=== PATIENT | female | born 1980 | race Two or more races ===

== ENCOUNTER → 2024-07-13 | Outpatient (CLI) | payer MEDICAID, SELFPAY ==
--- NOTE | 2024-07-13 11:30 | XR_ITS ---
Examination: Abdomen sonogram, complete Date and time of exam: July 13, 2024 12:20 PM INDICATIONS: Hematuria this month. Technique: Multiple real-time grayscale transabdominal sonographic images of the abdomen have been obtained. Findings: Multiple gallstones Normal gallbladder wall Normal common bile duct 0.2 cm Pancreatic head 2.3 cm Aorta not enlarged Liver 15.6 cm no focal liver lesions Normal hepatopedal portal venous oh Patent IVC Right kidney 11.9 cm cortex 1.5 cm Left kidney 11.5 cm cortex 1.7 cm Spleen 9.0 cm IMPRESSION: Cholelithiasis, negative for cholecystitis No renal calculi, no hydronephrosis, no solid renal mass lesion
== END | disposition home or self-care (01) ==
PROVIDERS: PCP Internal Medicine; Referring Provider Internal Medicine; Visit Provider Internal Medicine
DX: K80.20 Calculus of gallbladder without cholecystitis without obstruction (principal)
CPT/HCPCS: 76700